=== PATIENT | female | born 1990 | race Caucasian/White ===

== ENCOUNTER → 2017-10-12 | Outpatient (REF) | payer OTHER | LOC: M LAB REF 18:22 | DX: Z12.4 Encounter for screening for malignant neoplasm of cervix (principal) ==

== ENCOUNTER → 2017-11-30 | Outpatient (CLI) | payer OTHER ==
[2017-11-30 19:21] LABS: BASO % 0.2 % (0.0-1.0); EOS # 0.1 10^3/uL (0.0-0.50); EOS % 1.3 % (0.0-3.0); HEMATOCRIT 37.6 % (36.0-47.0); HEMOGLOBIN 12.8 g/dl (12.0-16.0); IMMATURE GRANULOCYTE % 0.1 % (0-3.0); LYMPH # 2.2 10^3/uL (1.5-6.5); MEAN CORPUSCULAR HEMOGLOBIN 31.8 pg (27.0-33.0); MEAN CORPUSCULAR VOLUME 93.5 fl (80.0-96.0); MONO # 0.8 10^3/uL (0.0-0.8); MONO % 9.3 % (0.0-5.0); NEUTROPHILS # 5.2 10^3/uL (1.8-7.7); NEUTROPHILS % 63.1 % (36.0-66.0); PLATELET COUNT, AUTOMATED 237 10^3/uL (150-450); RED BLOOD COUNT 4.02 10^6/uL (4.00-5.40); RED CELL DISTRIBUTION WIDTH 12.1 % (11.5-14.5); WHITE BLOOD COUNT 8.3 10^3/uL (4.0-10.0)
[2017-11-30 21:29] LABS: CHLAMYDIA DNA AMPLIFICATION NEGATIVE (NEGATIVE); GC DNA AMPLIFICATION NEGATIVE (NEGATIVE)
[2017-12-01 10:12] LABS: RUBELLA IgG QUALITATIVE IMMUNE (IMMUNE)
[2017-12-01 10:42] LABS: HIV 1&2 SCREEN CENTAUR NEGATIVE (NEGATIVE)
[2017-12-01 10:42] LABS: HEPATITIS C VIRUS ABY INDEX 0.1 INDEX (<0.8)
[2017-12-01 10:51] LABS: HBsAg Prenatal NEGATIVE (NEGATIVE)
== END ==
LOC: M SMT 15:36
DX: Z34.81 Encounter for supervision of other normal pregnancy, first trimester (principal); Z3A.09 9 weeks gestation of pregnancy
CPT/HCPCS: 86762

== ENCOUNTER → 2018-02-12 | Outpatient (CLI) | payer OTHER | LOC: M RAD 17:38 | DX: Z34.82 Encounter for supervision of other normal pregnancy, second trimester (principal) ==

== ENCOUNTER → 2018-04-12 | Outpatient (CLI) | payer OTHER ==
[2018-04-12 19:52] LABS: HEMATOCRIT 32.6 % (36.0-47.0); HEMOGLOBIN 10.8 g/dl (12.0-15.5); MEAN CORPUSCULAR HEMOGLOBIN 32.3 pg (27.0-33.0); MEAN CORPUSCULAR HGB CONC 33.1 g/dl (32.0-36.5); MEAN CORPUSCULAR VOLUME 97.6 fl (80.0-96.0); PLATELET COUNT, AUTOMATED 213 10^3/uL (150-450); RED BLOOD COUNT 3.34 10^6/uL (4.00-5.40); RED CELL DISTRIBUTION WIDTH 13.2 % (11.5-14.5); WHITE BLOOD COUNT 8.9 10^3/uL (4.0-10.0)
[2018-04-12 20:35] LABS: GLUCOSE CHALLENGE TEST 1 HOUR 66 MG/DL (LESS THAN 140)
[2018-04-13 08:48] LABS: TYPE AND SCREEN 1 1
== END ==
LOC: M WUC 16:34
DX: Z34.82 Encounter for supervision of other normal pregnancy, second trimester (principal); Z3A.00 Weeks of gestation of pregnancy not specified
CPT/HCPCS: 82950

== ENCOUNTER → 2018-04-16 | Outpatient (CLI) | payer OTHER | LOC: M RAD 06:19 | DX: O99.612 Diseases of the digestive system complicating pregnancy, second trimester (principal); N13.30 Unspecified hydronephrosis; R10.11 Right upper quadrant pain; Z3A.28 28 weeks gestation of pregnancy | CPT/HCPCS: 76705 ==

== ENCOUNTER → 2018-05-08 | Outpatient (CLI) | payer OTHER | LOC: M RAD 06:03 | DX: N13.30 Unspecified hydronephrosis (principal) | CPT/HCPCS: 76775 ==

== ENCOUNTER → 2018-06-06 | Outpatient (REF) | payer OTHER | LOC: M LAB REF 06-07 17:13 | DX: Z34.03 Encounter for supervision of normal first pregnancy, third trimester (principal) ==

== ENCOUNTER → 2018-06-20 | Outpatient (CLI) | payer OTHER ==
[2018-06-20 18:31] LABS: HEMATOCRIT 39.6 % (36.0-47.0); HEMOGLOBIN 13.2 g/dl (12.0-15.5); MEAN CORPUSCULAR HEMOGLOBIN 32.6 pg (27.0-33.0); MEAN CORPUSCULAR HGB CONC 33.3 g/dl (32.0-36.5); MEAN CORPUSCULAR VOLUME 97.8 fl (80.0-96.0); PLATELET COUNT, AUTOMATED 206 10^3/uL (150-450); RED BLOOD COUNT 4.05 10^6/uL (4.00-5.40); WHITE BLOOD COUNT 9.8 10^3/uL (4.0-10.0)
[2018-06-20 18:49] LABS: ALT/SGPT 21 U/L (12-78); AST/SGOT 19 U/L (7-37); BILIRUBIN,TOTAL 0.3 MG/DL (0.2-1.0); CREATININE FOR GFR 0.57 MG/DL (0.55-1.30); GLOMERULAR FILTRATION RATE > 60.0 (>60); LDH LACTATE DEHYDROGENASE 205 U/L (84-246); URIC ACID 3.8 MG/DL (2.6-6.0)
[2018-06-20 18:54] LABS: CREATININE,RANDOM URINE 57.5 MG/DL
[2018-06-20 18:54] LABS: TOTAL PROTEIN,RANDOM URINE 9.4 MG/DL (0.0-12.0)
== END ==
LOC: M SMT 15:17
DX: O13.3 Gestational [pregnancy-induced] hypertension without significant proteinuria, third trimester (principal)
CPT/HCPCS: 84460

== ENCOUNTER → 2018-06-22 | Outpatient (CLI) | payer OTHER ==
[2018-06-22 14:13] LABS: CREATININE 24 HOUR, URINE 511.2 MG/24HR (600-1800); CREATININE, URINE 42.6 MG/DL; TOTAL VOLUME, URINE 1200 ML; URINE TOTAL PROTEIN 6.5 MG/DL (0-12)
[2018-06-22 14:32] LABS: CREATININE CLEARANCE, URINE 59.2 ML/MIN (75-115); CREATININE, SERUM 0.6 MG/DL (0.6-1.0)
== END ==
LOC: M LAB 13:18
DX: Z34.03 Encounter for supervision of normal first pregnancy, third trimester (principal); Z3A.00 Weeks of gestation of pregnancy not specified
CPT/HCPCS: 82575

== ENCOUNTER 2018-06-27 16:25 | Inpatient (IN) | payer OTHER ==
[2018-06-27] MEDS ORDERED: PENICILLIN G POTASSIUM IV 5 MU in D5W MINI-BAG PLUS 100 ML IV (16:38)
[2018-06-27] MEDS: LR 1,000 ML IV (16:38)
[2018-06-27] MEDS: LACTATED RINGER'S 1000 ML IV (17:31)
[2018-06-27 17:34] LABS: HEMOGLOBIN 12.4 g/dl (12.0-15.5); MEAN CORPUSCULAR HGB CONC 34.4 g/dl (32.0-36.5); MEAN CORPUSCULAR VOLUME 95.7 fl (80.0-96.0); PLATELET COUNT, AUTOMATED 210 10^3/uL (150-450); RED BLOOD COUNT 3.76 10^6/uL (4.00-5.40); RED CELL DISTRIBUTION WIDTH 12.9 % (11.5-14.5); WHITE BLOOD COUNT 9.4 10^3/uL (4.0-10.0)
[2018-06-27 18:20] LABS: ALT/SGPT 19 U/L (12-78); AST/SGOT 27 U/L (7-37); BILIRUBIN,TOTAL 0.2 MG/DL (0.2-1.0); CREATININE FOR GFR 0.55 MG/DL (0.55-1.30); GLOMERULAR FILTRATION RATE > 60.0 (>60); URIC ACID 4.4 MG/DL (2.6-6.0)
[2018-06-27 18:22] LABS: TOTAL PROTEIN,RANDOM URINE 16.2 MG/DL (0.0-12.0)
[2018-06-27] MEDS: PENICILLIN G POTASSIUM IV 5 MU in D5W MINI-BAG PLUS 100 ML IV (18:22)
[2018-06-27] MEDS: miSOPROStol 50 MCG 1/2 TAB (S0191) SL (18:43)
[2018-06-27 20:40] LABS: LDH LACTATE DEHYDROGENASE 268 U/L (84-246)
[2018-06-27] MEDS ORDERED: PENICILLIN G POTASSIUM IV 2.5 MU in APPROPRIATE DILUENT 1 EA IV (20:45)
[2018-06-27] MEDS ORDERED: **PENDING PCN ENTRY XX (21:00)
[2018-06-27] MEDS: PENICILLIN G POTASSIUM IV 2.5 MU in APPROPRIATE DILUENT 1 EA IV (22:25)
[2018-06-27] MEDS ORDERED: miSOPROStol 50 MCG 1/2 TAB (S0191) SL (23:15)
[2018-06-28] MEDS: PROMETHAZINE INJ 25 MG/ML VIAL (J2550) IV (01:00)
[2018-06-28] MEDS: BUTORPHANOL 2 MG/ML INJ (J0595) IV (01:01)
[2018-06-28] MEDS: PENICILLIN G POTASSIUM IV 2.5 MU in APPROPRIATE DILUENT 1 EA IV ×2 (03:06→06:58)
[2018-06-28] MEDS ORDERED: FENTANYL 2MCG/ML ROPIVACAINE 0.2% IN 0.9% NACL 200ML IVBAG As Ordered (03:24)
[2018-06-28] MEDS ORDERED: EPIDURAL COMMENT XX (03:35)
[2018-06-28] MEDS ORDERED: FENTANYL/ROPIVACAINE/NACL BAG 200 ML EPIDURAL (03:35)
[2018-06-28] MEDS ORDERED: LACTATED RINGER'S 1000 ML IV (03:35)
[2018-06-28] MEDS ORDERED: ONDANSETRON 4MG/2ML VIAL (J2405) IV (03:35)
[2018-06-28] MEDS ORDERED: NALOXONE INJ 0.4 MG/1 ML VIAL (J2310) IV (03:35)
[2018-06-28] MEDS ORDERED: REFRIGERATOR IV KEYS XX (03:35)
[2018-06-28] MEDS ORDERED: diphenhydrAMINE INJ 50MG/ML VIAL (J1200) IV (03:35)
[2018-06-28] MEDS ORDERED: EPIDURAL/PCA KEYS XX (03:35)
[2018-06-28] MEDS: ePHEDrine SULFATE 25 MG/5 ML(5MG/ML) SYRINGE IV (05:49)
[2018-06-28] MEDS ORDERED: OXYTOCIN 30 UNITS IN 0.9% NaCl 500ML IV BAG (J2590) As Ordered (07:11)
[2018-06-28] MEDS: OXYTOCIN DRIP 30 UNITS in APPROPRIATE DILUENT 1 EA IV (10:51)
[2018-06-28] MEDS ORDERED: ANUSOL HC CREAM 30GM TOP (11:00)
[2018-06-28] MEDS ORDERED: RHOGAM 300 MCG (1500 IU) INJ (J2790) IM (11:00)
[2018-06-28] MEDS ORDERED: DIBUCAINE 1% OINTMENT 30GM TOP (11:00)
[2018-06-28] MEDS ORDERED: METHYLERGONOVINE MALEATE 0.2 MG TAB PO (11:00)
[2018-06-28] MEDS: MEASLES,MUMPS,RUBELLA VACCINE INJ (MMR-II) (90707) SC (11:03)
[2018-06-28] MEDS: ACETAMINOPHEN 500 MG TAB PO (11:33)
[2018-06-28] MEDS: IBUPROFEN 800 MG TAB PO (18:26)
[2018-06-28] MEDS: DOCUSATE SODIUM 100 MG CAP PO (19:41)
[2018-06-29] MEDS: IBUPROFEN 800 MG TAB PO (07:47)
[2018-06-29] MEDS: PRENATAL VITAMINS CHEWABLE TABLET PO (09:00)
== END 2018-06-29 16:05 | disposition home or self-care (01) | DRG 775 ==
LOC: M LDO 16:25 → M LDI 16:28 → M OBS 06-28 13:44
PROC: 10E0XZZ Delivery of Products of Conception, External Approach (ICD-10-PCS; principal; 2018-06-27)
PROC: 0HQ9XZZ Repair Perineum Skin, External Approach (ICD-10-PCS; 2018-06-27)
PROC: 3E0DXGC Introduction of Other Therapeutic Substance into Mouth and Pharynx, External Approach (ICD-10-PCS; 2018-06-27)
DX: O13.4 Gestational [pregnancy-induced] hypertension without significant proteinuria, complicating childbirth (principal); Z37.0 Single live birth; O70.0 First degree perineal laceration during delivery; Z3A.39 39 weeks gestation of pregnancy; O99.820 Streptococcus B carrier state complicating pregnancy